=== PATIENT | female | born 1990 | race Caucasian/White ===

== ENCOUNTER 2020-12-31 19:52 | Emergency (ER) | payer BC ==
--- OUTSIDE RECORDS SUMMARY | 2020-12-31 19:55 | XMS REPORT | Continuity of Care Document ---
:1990 Author Organization [facility] t Address [address] [place] [address] Care Team Providers Name Role Phone Catalino Garcia MD Attending Clinician Catalino Garcia MD Admitting Clinician Payers Payer Name Policy Type Policy Number Effective Date Expiration Date S ource Problems This patient has no known problems. Allergies, Adverse Reactions, Alerts Allergy Allergy Status Severity Reaction(s) Onset Inactive Treating Comm ents Source Name Type Date Date Clinician No Known DA Active U 2018-04 [facility] [place] Medications This patient has no known medications. Procedures This patient has no known procedures. Encounters Start End Encounter Admission Attending Care Care Encounter Source Date/Time Date/Time Type Type Clinicians Facility Department ID 2018-12-24 2018-12-24 [facility] Willow Garcia [facility] [id number] 00:44:00 03:00:00 Encounter Catalino Shanta [id number] [place] [id number] [place] [id number] Results Test Description Test Time Test Comments Results Result Comments Source [facility] 2019-03-09 [place] 06:46:00 RUN DATE: 03/09/19 [facility] PAGE 1 RUN TIME: 1341 Specimen Inquiry RUN USER: INTERFACE PATIENT: LAUREN BELTRE LOC: DanielSTANLEY U #: [id number] AGE/SX: 28/F ROOM: [facility] RE03/02/19[facility]: David Pruitt MD : 88 BED: A DIS: 03/06/19 STATUS: DIS IN TLOC: SPEC #: [id number] RECD: 03/04/19 STATUS: LEONOR WILLS #: [id number] KIMBERLY: 03/04/19- SUBM DR: David Pruitt MD ENTERED: 03/05/19 SP TYPE: PLACIII OTHR DR: ORDERED: LEVEL V SURGICA CODES: [id number] - PLACENTA, NOS PROCEDURES: LEVEL V SURGICA (Incomplete) TISSUES: PLACENTA, NOS - PLACENTA CLINICAL HISTORY 28 year old, 40.6 weeks, [id number], vaginal delivery, gestational hypertension, increased BP (kr) FINAL DIAGNOSIS Placenta, murillo gestation: - term placenta - localized areas with increased syncytial knots - no inflammation of umbilical cord or membranes - a few pigment-laden macrophages in membranes - umbilical cord: insertion 5 cm from margin, 3-vessel, 46 cm length - placental weight: actual 510 gm (25th to 50th percentile) CPT Code: 82915 cds/kr dt: 03/09/19 GROSS DESCRIPTION The specimen was received in a container, labeled with the patient's name, unit number and designated "placenta". The following attributes are observed: Cord insertion: 5 cm from margin Cord length: 46 cm Number of vessels: 3 Cord color: De Other cord findings: Edematous surface findings: Steel blue, wrinkled, glistening with focal subchorionic fibrin deposition and green discoloration Vasculature: Displays unremarkable blood vasculature Membranes rupture site: 1 cm to margin Membrane color: De Other membrane findings: Thickened CONTINUED ON NEXT PAGE RUN DATE: 03/09/19 [facility] PAGE 2 RUN TIME: 1341 Specimen Inquiry RUN USER: INTERFACE SPEC #: [id number] PATIENT: LAUREN BELTRE #[id number] (Continued)--------- --- GROSS DESCRIPTION (Continued) The trimmed placental weight: 510 gm Disk measurement: 20.0 x 18.0 x 3.5 cm in greatest dimension Accessory lobes: None Maternal surface: Lobulated and intact Parenchyma: Red, beefy, and spongy with peripheral fibrosis Parenchyma lesions: None Cassettes: A1 through A4 isabel/wpflor 03/05/19 @ 1501 Signed David Patterson 03/09/19 0646 END OF REPORT CBC W/AUTO DIFF 2019-03-06 04:52:00 Test Item Value Reference Range Interpretation Comme nts WHITE BLOOD CELL (test code = WBC) 19.1 K/mm3 6.6-12.1 H RED BLOOD CELL (test code = RBC) 2.37 M/mm3 3.45-5.01 L HEMOGLOBIN (test code = HGB) 7.3 g/dL 10.7-13.9 L HEMATOCRIT (test code = HCT) 23.2 % 32.1-42.1 L MEAN CELL VOLUME (test code = MCV) 98 fL 84.1-94.8 H MEAN CELL HGB (test code = MCH) 30.8 pg 27-35 N MEAN CELL HGB CONCETRATION (test code = MCHC) 31.5 gm/dL 32.2-34. 1 L RED CELL DISTRIBUTION WIDTH (test code = RDW) 14.0 % 12.4-16. 5 N PLATELET COUNT (test code = PLT) 255 K/mm3 133-385 N IMMATURE PLATELET FRACTION (test code = IPF) 0.0 % 0.0-10.8 N MEAN PLATELET VOLUME (test code = MPV) 9.6 fl 9.1-12.7 N NEUTROPHIL % (test code = NT%) 76.8 % 56.5-79.4 N LYMPHOCYTE % (test code = LY%) 16.3 % 14.3-34.3 N MONOCYTE % (test code = MO%) 5.1 % 5.1-10.4 N EOSINOPHIL % (test code = EO%) 0.0 % 0.1-3.0 L BASOPHIL % (test code = BA%) 0.4 % 0.1-1.0 N NEUTROPHIL # (test code = NT#) 14.7 K/mm3 LYMPHOCYTE # (test code = LY#) 3.1 K/mm3 MONOCYTE # (test code = MO#) 1.0 K/mm3 EOSINOPHIL # (test code = EO#) 0 K/mm3 BASOPHIL # (test code = BA#) 0.1 K/mm3 RBC MORPHOLOGY REQUIRED (test code = RBCM) NORMAL NORMAL PLATELET MORPHOLOGY REQUIRED (test code = PLTMR) NORMAL ANDRES L CBC W/AUTO [id number] 07:36:00 Test Item Value Reference Range Interpretation Comments WHITE BLOOD CELL (test 25.0 K/mm3 6.6-12.1 HH RESUL TS CALLED TO code = WBC) Julee LoweREAD BACK & CONFIRMED? y. BY [email or web address].[facility] 03/05 0735.RESULTS VERIFIED BY REP EAT ANALYSIS RED BLOOD CELL (test 2.66 M/mm3 3.45-5.01 L code = RBC) HEMOGLOBIN (test code = 8.1 g/dL 10.7-13.9 L HGB) HEMATOCRIT (test code = 25.7 % 32.1-42.1 L HCT) MEAN CELL VOLUME (test 97 fL 84.1-94.8 H code = MCV) MEAN CELL HGB (test code 30.5 pg 27-35 N = MCH) MEAN CELL HGB 31.5 gm/dL 32.2-34.1 L CONCETRATION (test code = MCHC) RED CELL DISTRIBUTION 14.1 % 12.4-16.5 N WIDTH (test code = RDW) PLATELET COUNT (test 301 K/mm3 133-385 N code = PLT) IMMATURE PLATELET 0.0 % 0.0-10.8 N FRACTION (test code = IPF) MEAN PLATELET VOLUME 9.8 fl 9.1-12.7 N (test code = MPV) NEUTROPHIL % (test code 84.4 % 56.5-79.4 H = NT%) LYMPHOCYTE % (test code 8.8 % 14.3-34.3 L = LY%) MONOCYTE % (test code = 4.9 % 5.1-10.4 L MO%) EOSINOPHIL % (test code 0.0 % 0.1-3.0 L = EO%) BASOPHIL % (test code = 0.4 % 0.1-1.0 N BA%) NEUTROPHIL # (test code 21.1 K/mm3 = NT#) LYMPHOCYTE # (test code 2.2 K/mm3 = LY#) MONOCYTE # (test code = 1.2 K/mm3 MO#) EOSINOPHIL # (test code 0 K/mm3 = EO#) BASOPHIL # (test code = 0.1 K/mm3 BA#) RBC MORPHOLOGY REQUIRED NORMAL NORMAL (test code = RBCM) PLATELET MORPHOLOGY NORMAL NORMAL REQUIRED (test code = PLTMR) AG HEPATITIS B [id number] 19:00:00 Test Item Value Reference Range Interpretation Comments AG HEPATITIS B SURFACE (test code NONREACTIVE NONREACTIVE = HBSAG) IS CONSENT FORM SIGNED FOR HIV TESTING? YAB HEPATITIS C [id number] 19:00:00 Test Item Value Reference Range Interpretation Comments AB HEPATITIS C (test code = NONREACTIVE NONREACTIVE HCVAB) SIGNAL TO CUTOFF (test code = 0.07 <0.80 N CUTOFF) IS CONSENT FORM SIGNED FOR HIV TESTING? YAB [id number] 19:00:00 Test Item Value Reference Range Interpretation Comments AB TREPONEMA (test code = TREPAB) NONREACTIVE NONREACTIVE IS CONSENT FORM SIGNED FOR HIV TESTING? YAB HIV 1 19:00:00 Test Item Value Reference Range Interpretation Comments AB HIV 1 2 (test NONREACTIVE NONREACTIVE Done by [facility] [id number]) 4th Gen HIV Ag/Ab Combo Screen IS CONSENT FORM SIGNED FOR HIV TESTING? YAG HEPATITIS B [id number] 17:57:00 Test Item Value Reference Range Interpretation Comments AG HEPATITIS B SURFACE (test code NONREACTIVE NONREACTIVE = HBSAG) IS CONSENT FORM SIGNED FOR HIV TESTING? ANJALIB HEPATITIS C [id number] 17:57:00 Test Item Value Reference Range Interpretation Comments AB HEPATITIS C (test code = HCVAB) NONREACTIVE SIGNAL TO CUTOFF (test code = CUTOFF) <0.80 IS CONSENT FORM SIGNED FOR HIV TESTING? ANJALIB [id number] 17:57:00 Test Item Value Reference Range Interpretation Comments AB TREPONEMA (test code = TREPAB) NONREACTIVE NONREACTIVE IS CONSENT FORM SIGNED FOR HIV TESTING? YAB HIV 1 17:57:00 Test Item Value Reference Range Interpretation Comments AB HIV 1 2 (test code = [id number]) NONREACTIVE IS CONSENT FORM SIGNED FOR HIV TESTING? YAG HEPATITIS B [id number] 17:51:00 Test Item Value Reference Range Interpretation Comments AG HEPATITIS B SURFACE (test code NONREACTIVE NONREACTIVE = HBSAG) IS CONSENT FORM SIGNED FOR HIV TESTING? MICHAEL HEPATITIS C [id number] 17:51:00 Test Item Value Reference Range Interpretation Comments AB HEPATITIS C (test code = HCVAB) NONREACTIVE SIGNAL TO CUTOFF (test code = CUTOFF) <0.80 IS CONSENT FORM SIGNED FOR HIV TESTING? YAB [id number] 17:51:00 Test Item Value Reference Range Interpretation Comments AB TREPONEMA (test code = TREPAB) NONREACTIVE IS CONSENT FORM SIGNED FOR HIV TESTING? YAB HIV 1 17:51:00 Test Item Value Reference Range Interpretation Comments AB HIV 1 2 (test code = [id number]) NONREACTIVE IS CONSENT FORM SIGNED FOR HIV TESTING? YCBC W/AUTO [id number] 17:05:00 Test Item Value Reference Range Interpretation Comments WHITE BLOOD CELL (test code = WBC) 15.9 K/mm3 6.6-12.1 H RED BLOOD CELL (test code = RBC) 4.26 M/mm3 3.45-5.01 N HEMOGLOBIN (test code = HGB) 12.9 g/dL 10.7-13.9 N HEMATOCRIT (test code = HCT) 39.9 % 32.1-42.1 N MEAN CELL VOLUME (test code = MCV) 94 fL 84.1-94.8 N MEAN CELL HGB (test code = MCH) 30.3 pg 27-35 N MEAN CELL HGB CONCETRATION (test 32.3 gm/dL 32.2-34.1 N code = MCHC) RED CELL DISTRIBUTION WIDTH (test 13.6 % 12.4-16.5 N code = RDW) PLATELET COUNT (test code = PLT) 408 K/mm3 133-385 H IMMATURE PLATELET FRACTION (test 0.0 % 0.0-10.8 N code = IPF) MEAN PLATELET VOLUME (test code = 9.4 fl 9.1-12.7 N MPV) NEUTROPHIL % (test code = NT%) 81.1 % 56.5-79.4 H LYMPHOCYTE % (test code = LY%) 13.1 % 14.3-34.3 L MONOCYTE % (test code = MO%) 4.2 % 5.1-10.4 L EOSINOPHIL % (test code = EO%) 0.0 % 0.1-3.0 L BASOPHIL % (test code = BA%) 0.3 % 0.1-1.0 N NEUTROPHIL # (test code = NT#) 12.9 K/mm3 LYMPHOCYTE # (test code = LY#) 2.1 K/mm3 MONOCYTE # (test code = MO#) 0.7 K/mm3 EOSINOPHIL # (test code = EO#) 0 K/mm3 BASOPHIL # (test code = BA#) 0.0 K/mm3 RBC MORPHOLOGY REQUIRED (test code NORMAL NORMAL = RBCM) PLATELET MORPHOLOGY REQUIRED (test NORMAL NORMAL code = PLTMR) - US [facility] [id number] 11:57:00 Patient Name: LAUREN BELTRE Unit No: [id number] EXAMS: C[place]: [id number] [place] [address] [facility] [address] [place], [place] [address] OBSTETRICAL ULTRASOUND REPORT Pat. Name: LAUREN BELTRE Pat. No: [id number] StudyDate: 02/16/2019 11:03am , Age: 04 1990, 28 Pregnancies: 3, Para 0 LMP: 05/22/2018 GA by LMP: 38w4d GA by US: 37w0d GA Selected: 38w4d (LMP) PLACIDO: 02/26/2019 Referring MD: DAVID PRUITT [employer] Supervisor: Alexandra Crockett RDMS, RVT CPT4: USPREGFU Admitting MD: DAVID PRUITT Hist/Ind: SCAN 1 38 WEEKS EXCESSIVE GROWTH MEASURE MENTS AGE GROWTH EVALUATION Measurement GA Range Srce %for GA Ratios ----- ---- ------- BPD 9.4 cm 39w0d (07x6i-68z6w) Hadl BPD 55% FL/BPD 0.76 (0.71 - 0.87) HC 33.4 cm 37w4d (09q9o-35e2t) Hadl HC 33% FL/AC 0.21 (0.20 - 0.24) APD 10.9 cm APD HC/AC 0.99 (0.90 - 1.09) TAD 10.6 cm TAD CI 0.84 (0.70 - 0.86) AC 33.8 cm 37w6d (51f1n-14v1p) HadlAC 38% FL 7.1 cm 36w2d (16q9g-15y6z) Hadl FL 16% HL 6.4 cm 37w1d (07c4e-39q8o) Benson HL 25%GA for sonogram 37w0d (82i0e-46o2n) Weight Estimate: based on (BPD,HC,AC,FL) Hadlock Jovon ght: 3228 gm (3098-4045) Hadlo : 7lbs, 1oz Normal: 3114 gm (1683-8328) Brenn Wt% 58% for 38.6 wks Heart Rate: 154 bpm Amniotic Fluid Index: 15.3cm (07.2-23.1) Q1: 1.1cmQ2: 6.5cm Q3: 4.5cm Q4: 3.2cm CLINICAL SUMMARY Type of Gestation: Murillo Intrauterine in vertex presentation. size is appropriate for gestational age. growth: Consistent with normal growth motion and organs seen: heart motion seen somatic activity observed body and limb movements seen Regular cardiac rhythm observed Placental location: Right lateral [facility] NAME: LAUREN BELTRE [facility] Radiology Department PHYS: David Segura [address] : 1990 AGE: 28 SEX: F [place], [place] [address]KLIW NO: [id number] LOC: Jayna.RAD PHONE #: [phone] EXAM DATE: 02/16/2019 STATUS: REG CLI FAX #: [phone] RAD NO: Page 1 Signed Report (CONTINUED) Patient Name: LAUREN BELTRE Unit No: [id number] EXAMS: CPT [place]: [id number] [place] [address] <Continued> Placental maturity : Grade 2 There is no evidence of placenta previa. Amniotic fluid volume is normal. Uterus and adnexa: No significant abnormality is seen. Thank you for allowing us to participate in the care of this patient. Mynor Hearn M.D. Electronic Signature 02/16/2019 11:57am at 1157 Reported and signed by: Chaya Hearn MD CC: Technologist: Alexandra Crockett RDMS, RVT Probe: Trnscrbd D/ (1157) t.SDR.CER Orig Print D/T: S: 02/16/2019 (3567) [facility] NAME: LAUREN BELTRE Radiology Department PHYS: Claire - David Pruitt [address] : 1990 AGE: 28 SEX: F [place] [address] LOC: DanielRAD PHONE #: [phone] EXAM DATE: 02/16/2019 STATUS: REG CLI FAX #: [phone] RAD NO: Page 2 Signed Report Patient Name: LAUREN BELTRE Unit No: [id number] EXAMS: CPT CODE: [id number] [place] [address] <Continued> [facility] NAME: LAUREN BELTRE Radiology Department PHYS: LAKSHMI.Claire David Galo [address] : 1990 AGE: 28 SEX: F [place] [address] LOC: Jayna.RAD PHONE #: [phone] EXAM DATE: 02/16/2019 STATUS: REG CLI FAX #: [phone] RAD NO: Page 3 Signed Report
[2020-12-31 22:04] LABS: Urine Blood Negative (Negative); Urine Glucose Negative (Negative); Urine Protein Negative (Negative); Urine Specific Gravity >=1.030 (1.005-1.030)
[2020-12-31 23:46] LABS: Urine Specific Gravity/Preg >1.030 (1.005-1.030)
[2021-01-01] MEDS ORDERED: HYDROCODONE/APAP 5/325 MG TAB ONE (00:02)
--- NOTE | 2021-01-01 00:28 | EDPHYS ---
Physician Documentation [facility] Name: Rosario Nolan Age: 30 yrs Sex: Female : 1990 Arrival Date: 12/31/2020 Time: 19:56 Bed 6 Private MD: ED Physician Sean Collazo HPI: 12/31 23:24 This 30 yrs old Female presents to ER via Ambulatory with complaints of Ankle mh7 Injury. 23:24 The patient presents with an injury. The complaints affect the left ankle and left mh7 foot. Onset: The symptoms/episode began/occurred today, at 19:00. Context: The problem was sustained at home, resulted from the patient falling, down stairs, The mechanism of injury is unknown. The patient can partially bear weight on the affected extremity. the patient is able to ambulate, with mild difficulty. 23:24 Associated signs and symptoms: Pertinent positives: swelling, Pertinent negatives: calf mh7 tenderness, fever, nausea, numbness, rash, tingling, vomiting, warmth, weakness. 23:24 Modifying factors: The symptoms are alleviated by nothing, the symptoms are aggravated mh7 by weight bearing. Severity of symptoms: At their worst the symptoms were moderate, earlier today, in the emergency department the symptoms have improved, moderately. Patient states that she slipped last 2 stairs of her above ground pool when exiting. She reports injuring her left foot and ankle. She denies any head trauma or LOC or other complaints. She took 800 mg ibuprofen prior to coming to the ED.. Historical: - Allergies: 21:49 No Known Allergies; kg - Home Meds: 21:49 None [Active]; kg - PMHx: 21:49 None; kg - PSHx: 21:49 None; kg - Immunization history:: Adult Immunizations not up to date, Client reports having NOT received the Covid vaccine. - Social history:: Smoking status: Patient reports the use of cigarette tobacco products, denies chronic smoking, but will smoke occasionally. ROS: 23:24 Constitutional: Negative for fever, chills, and weight loss, Eyes: Negative for injury, mh7 pain, redness, and discharge, ENT: Negative for injury, pain, and discharge, Neck: Negative for injury, pain, and swelling, Cardiovascular: Negative for chest pain, palpitations, and edema, Respiratory: Negative for shortness of breath, cough, wheezing, and pleuritic chest pain, Abdomen/GI: Negative for abdominal pain, nausea, vomiting, diarrhea, and constipation, Back: Negative for injury and pain, : Negative for injury, bleeding, discharge, and swelling, Skin: Negative for injury, rash, and discoloration, Neuro: Negative for headache, weakness, numbness, tingling, and seizure, Psych: Negative for depression, anxiety, suicide ideation, homicidal ideation, and hallucinations, Allergy/Immunology: Negative for hives, rash, and allergies, Endocrine: Negative for neck swelling, polydipsia, polyuria, polyphagia, and marked weight changes, Hematologic/Lymphatic: Negative for swollen nodes, abnormal bleeding, and unusual bruising. Exam: 23:24 Constitutional: This is a well developed, well nourished patient who is awake, alert, mh7 and in no acute distress. Head/Face: Normocephalic, atraumatic. Skin: Warm, dry with normal turgor. Normal color with no rashes, no lesions, and no evidence of cellulitis. 23:24 Neuro: Awake and alert, GCS 15, oriented to person, place, time, and situation. Cranial nerves II-XII grossly intact. Motor strength 5/5 in all extremities. Sensory grossly intact. Cerebellar exam normal. Normal gait. Psych: Awake, alert, with orientation to person, place and time. Behavior, mood, and affect are within normal limits. 23:24 Musculoskeletal/extremity: Extremities: noted in the left foot: tenderness, noted in the left ankle: pain, swelling, tenderness, ROM: limited active range of motion due to pain, in the left ankle, limited passive range of motion due to pain, in the left ankle, Circulation is intact in all extremities. Sensation intact. Compartment Syndrome exam of affected extremity: is normal. no numbness, no tingling, no sensation deficit, no palor, no weak pulses, Joints: the left ankle displays painful range of motion, swelling, tenderness, Weight bearing: able to fully bear weight, Mild limp, Tendon exam: specific tendon testing normal through active and passive range of motion Vital Signs: 21:47 BP 140 / 96; Pulse 67; Resp 20; Temp 98.1(TE); Pulse Ox 100% on R/A; Weight 122.47 kg kg (R); Height 5 ft. 4 in. (162.56 cm) (R); Pain 7/10; 23:42 BP 163 / 81; Pulse 81; Resp 16 S; Pulse Ox 100% on R/A; Pain 4/10; bb 21:47 Body Mass Index 46.34 (122.47 kg, 162.56 cm) kg MDM: 01/01 00:25 Differential diagnosis: fracture, sprain, arthritis. Data reviewed: vital signs, nurses [facility] notes, lab test result(s), UPT: negative radiologic studies, plain films. 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 Counseling: I had a detailed discussion with the patient and/or guardian regarding: to return to the emergency department if symptoms worsen or persist or if there are any questions or concerns that arise at home. Response to treatment: the patient's symptoms have markedly improved after treatment. 00:27 Patient medically screened. [facility] 12/31 22:03 Order name: Urine Dipstick-Ancillary; Complete Time: 23:13 EDMS 12/31 22:05 Order name: Urine --Ancillary (enter results); Complete Time: 00:04 ds4 12/31 21:53 Order name: XRAY Ankle LEFT 3 view kg 12/31 23:23 Order name: Foot Left 3 View XRAY [facility] 01/01 00:24 Order name: Praveen Wrap; Complete Time: 01:41 [facility] 01/01 00:24 Order name: Walking boot; Complete Time: 01:41 [facility] Administered Medications: 12/31 23:42 Drug: HYDROcodone-acetaminophen 5 mg-325 mg 2 tabs {Note: RASS 0.} Route: PO; bb 01/01 00:15 Follow up: Response: No adverse reaction; Pain is decreased; RASS: Alert and Calm (0) jb4 Disposition Summary: 01/01/21 00:27 Discharge Ordered Location: Home [facility] Problem: new [facility] Symptoms: have improved [facility] Condition: Stable [facility] Diagnosis - Sprain, Left Foot and Ankle [facility] Followup: [facility] - With: Private Physician - When: 1 - 2 days - Reason: Worsening of condition, Recheck today's complaints, Continuance of care, Re-evaluation by your physician Followup: [facility] - With: Quan Dubose DPM - When: 2 - 3 days - Reason: Worsening of condition, Recheck today's complaints Discharge Instructions: - Discharge Summary Sheet [facility] - Foot Sprain [facility] - Ankle Sprain, Sqke-bu-Eeak [facility] - Walking Boot, Adult [facility] Forms: - Medication Reconciliation Form [facility] - Thank You Letter [facility] - Antibiotic Education [facility] - Prescription Opioid Use [facility] Prescriptions: - Ibuprofen 800 mg Oral Tablet - take 1 tablet by ORAL route every 8 hours As needed take with food; 15 tablet; [facility] Refills: 0, Product Selection Permitted Signatures: Dispatcher [employer] Marry Hernandez RN RN Sean Umana MD MD [facility] Maddison Walters RN RN kg Tim Singh RN jb4
--- NOTE | 2021-01-01 00:28 | ER ---
Nurse's Notes [facility] Name: Rosario Nolan Age: 30 yrs Sex: Female : 1990 Arrival Date: 12/31/2020 Time: 19:56 Bed 6 Private MD: Diagnosis: Sprain, Left Foot and Ankle Presentation: 12/31 21:47 Chief complaint: Patient states: Left ankle pain starting at 18:30. Fell off pool kg ladder in between first and second step . Coronavirus screen: Vaccine status: Patient reports being unvaccinated. Ebola Screen: Patient negative for fever greater than or equal to 101.5 degrees Fahrenheit, and additional compatible Ebola Virus Disease symptoms Patient denies exposure to infectious person. Patient denies travel to an Ebola-affected area in the 21 days before illness onset. Initial Sepsis Screen: Does the patient meet any 2 criteria? No. Patient's initial sepsis screen is negative. Does the patient have a suspected source of infection? No. Patient's initial sepsis screen is negative. Risk Assessment: Do you want to hurt yourself or someone else? Patient reports no desire to harm self or others. Onset of symptoms was December 31, 2020 at 18:30. 21:47 Method Of Arrival: Ambulatory kg 21:47 Acuity: BYRON 4 kg Triage Assessment: 21:49 General: Appears in no apparent distress. Behavior is calm, cooperative, quiet. Pain: kg Complains of pain in left ankle. Musculoskeletal: Reports pain in Left ankle Pain is 7 out of 10 on a pain scale. Historical: - Allergies: 21:49 No Known Allergies; kg - Home Meds: 21:49 None [Active]; kg - PMHx: 21:49 None; kg - PSHx: 21:49 None; kg - Immunization history:: Adult Immunizations not up to date, Client reports having NOT received the Covid vaccine. - Social history:: Smoking status: Patient reports the use of cigarette tobacco products, denies chronic smoking, but will smoke occasionally. Screenin:51 Abuse screen: Denies threats or abuse. Denies injuries from another. Nutritional kg screening: No deficits noted. Tuberculosis screening: No symptoms or risk factors identified. Fall Risk Fall in past 12 months (25 points). No secondary diagnosis (0 pts). No IV (0 pts). Ambulatory Aid- None/Bed Rest/Nurse Assist (0 pts). Gait- Normal/Bed Rest/Wheelchair (0 pts) Mental Status- Oriented to own ability (0 pts). Assessment: 23:42 General: Appears in no apparent distress. uncomfortable, Behavior is calm, cooperative. bb Pain: Complains of pain in left ankle and left foot. Neuro: Level of Consciousness is awake, alert, obeys commands, Oriented to person, place, time, situation. Cardiovascular: Capillary refill < 3 seconds Patient's skin is warm and dry. Respiratory: Respiratory effort is even, unlabored, Respiratory pattern is regular. GI: No signs and/or symptoms were reported involving the gastrointestinal system. Derm: Skin is pink, warm \T\ dry. Musculoskeletal: Circulation, motion, and sensation intact. Swelling present in left ankle. Vital Signs: 21:47 BP 140 / 96; Pulse 67; Resp 20; Temp 98.1(TE); Pulse Ox 100% on R/A; Weight 122.47 kg kg (R); Height 5 ft. 4 in. (162.56 cm) (R); Pain 7/10; 23:42 BP 163 / 81; Pulse 81; Resp 16 S; Pulse Ox 100% on R/A; Pain 4/10; bb 21:47 Body Mass Index 46.34 (122.47 kg, 162.56 cm) kg ED Course: 19:56 Patient arrived in ED. ja2 21:49 Triage completed. kg 21:51 Patient has correct armband on for positive identification. kg 21:51 No provider procedures requiring assistance completed. kg 22:28 XRAY Ankle LEFT 3 view In Process Unspecified. EDMS 23:11 Sean Collazo MD is Attending Physician. mh7 23:11 Danny Mendoza PA is PHCP. cp 23:42 Patient did not have IV access during this emergency room visit. bb 23:46 Tim Singh, RN is Primary Nurse. jb4 09 00:10 Foot Left 3 View XRAY In Process Unspecified. EDMS 00:26 Quan Dubose DPM is Referral Physician. mh7 Administered Medications: 12/31 23:42 Drug: HYDROcodone-acetaminophen 5 mg-325 mg 2 tabs {Note: RASS 0.} Route: PO; bb 01/01 00:15 Follow up: Response: No adverse reaction; Pain is decreased; RASS: Alert and Calm (0) jb4 Outcome: 00:27 Discharge ordered by MD. yap 01:41 Patient left the ED. jb4 Signatures: Dispatcher [employer] Marry Hernandez, RN RN Danny Westfall PA PA cp Bryson, James, RN RN jb4 Sean Collazo MD MD mh7 Maddison Walters RN RN Xiomara Kohler
[2021-01-01 01:46] VITALS: TEMP 98.1; O2SAT 100
[2021-01-01 01:48] VITALS: BP 163/81
--- NOTE | 2021-01-01 09:39 | RAD REPORT ---
EXAM DESCRIPTION: RAD - Ankle Left 3 View -12/31/2020 10:27 pm CLINICAL HISTORY: Left ankle pain status post injury FINDINGS: No fracture or dislocation is seen.
--- NOTE | 2021-01-01 09:43 | RAD REPORT ---
EXAM DESCRIPTION: RAD - Foot Left 3 View - 01/01/2021 12:10 am CLINICAL HISTORY: Left Foot pain status post injury FINDINGS: No fracture or dislocation is seen.
== END 2021-01-01 01:41 | disposition home or self-care (01) ==
LOC: ER 19:52
DX: S93.402A Sprain of unspecified ligament of left ankle, initial encounter (principal); W10.8XXA Fall (on) (from) other stairs and steps, initial encounter; F17.210 Nicotine dependence, cigarettes, uncomplicated
CPT/HCPCS: 81003; 81025; 99283